=== PATIENT | female | born 2000 | race African-American/Black ===

== ENCOUNTER 2020-08-03 12:04 | Emergency (ER) | payer SELFPAY ==
[~2020-08-03] VITALS: Ht 170.2 cm; Wt 84.1 kg
[2020-08-03 12:06] VITALS: TEMP 99.5
[2020-08-03 12:32] LABS: BASO % 0.2 % (0.0-2.0); EOS # 0.2 (0.0-0.7); EOS % 1.8 % (0-4.0); GRAN # 6.4 (1.4-6.5); GRAN % 58.8 % (42.2-75.2); HEMATOCRIT 37.6 % (35.0-45.0); HEMOGLOBIN 12.7 g/dl (12.0-15.0); LYMPH # 3.7 (1.2-3.4); MEAN CELL VOLUME 88 fl (80.0-95.0); MEAN CORPUSCULAR HEMOGLOBIN 30 pg (26.0-32.0); MEAN CORPUSCULAR HGB CONC 34 g/dl (33.0-37.0); MONO # 0.5 (0.1-0.6); MONO % 4.9 % (1.7-9.3); PLATELET COUNT 307 K/mm3 (130-400); RED BLOOD COUNT 4.28 M/mm3 (4.10-5.30); REDCELL DISTRIBUTION WIDTH-CV 12.2 % (11.5-14.5)
[2020-08-03 12:36] LABS: COLLECTION METHOD CLEAN CATCH
[2020-08-03 12:43] LABS: PH 7 (5-8); SQUAMOUS EPITHELIAL 0-2 /hpf; URINE APPEARANCE Clear; URINE BACTERIA Rare /hpf; URINE BILIRUBIN Negative (NEGATIVE); URINE BLOOD Negative (NEGATIVE); URINE COLOR Amber; URINE GLUCOSE Negative (NEGATIVE); URINE KETONE Negative (NEGATIVE); URINE LEUKOCYTE ESTERASE Negative (NEGATIVE); URINE NITRATE Negative (NEGATIVE); URINE PROTEIN(semi-quant) Negative (NEGATIVE); URINE RBC 0-2 /hpf; URINE UROBILINOGEN Negative (NEGATIVE)
[2020-08-03 12:46] LABS: ALANINE AMINOTRANSFERASE 18 U/L (4-34); ALBUMIN 4.3 gm/dL (3.5-5.0); ALKALINE PHOSPHATASE 88 U/L (50-136); ANION GAP 9 mmol/L (7-16); AST,SGOT 25 U/L (15-37); BILIRUBIN,TOTAL 0.2 mg/dL (0.0-1.0); BLOOD UREA NITROGEN 10 mg/dL (7-17); CALCIUM 9.4 mg/dL (8.4-10.2); CARBON DIOXIDE 24 mmol/L (22-30); CHLORIDE 104 mmol/L (98-107); CREATININE, serum 0.79 (0.52-1.25); GLUCOSE 110 mg/dL (74-106); POTASSIUM 4.1 mmol/L (3.4-5.0); SODIUM 137 mmol/L (137-145); TOTAL PROTEIN 7.8 gm/dL (6.4-8.2)
[2020-08-03 12:48] LABS: ACETAMINOPHEN < 10 ug/mL (10-30); ALCOHOL(ethanol),MEDICAL < 10 mg/dL; SALICYLATE < 1.0 mg/dL
[2020-08-03 12:57] LABS: TRICYCLIC ANTIDEPRESS URINE NEGATIVE
[2020-08-03 18:21] VITALS: BP 123/79; PULSE 78
== END 2020-08-03 18:24 ==
LOC: COL.ER 12:04
PROVIDERS: Family Medicine
DX: S51.812A Laceration without foreign body of left forearm, initial encounter (principal); F32.9 Major depressive disorder, single episode, unspecified; Z87.891 Personal history of nicotine dependence; Z88.0 Allergy status to penicillin; X78.0XXA Intentional self-harm by sharp glass, initial encounter

== ENCOUNTER 2020-08-15 18:52 | Emergency (ER) | payer SELFPAY ==
[~2020-08-15] VITALS: Ht 170.2 cm; Wt 88.6 kg
[2020-08-15 19:06] VITALS: BP 116/88; TEMP 97.2
[2020-08-15 20:06] LABS: COLLECTION METHOD CLEAN CATCH
[2020-08-15 20:09] LABS: HEMOGLOBIN 11.3 g/dl (12.0-15.0); MEAN CELL VOLUME 88 fl (80.0-95.0); MEAN CORPUSCULAR HEMOGLOBIN 29 pg (26.0-32.0); MEAN CORPUSCULAR HGB CONC 33 g/dl (33.0-37.0); MEAN PLATELET VOLUME 8.8 fl (7.4-10.4); PLATELET COUNT 346 K/mm3 (130-400); RED BLOOD COUNT 3.84 M/mm3 (4.10-5.30); REDCELL DISTRIBUTION WIDTH-CV 12.8 % (11.5-14.5)
[2020-08-15 20:15] LABS: HEMATOCRIT 33.9 % (35.0-45.0); MUCOUS Present /lpf; SQUAMOUS EPITHELIAL 0-2 /hpf; URINE BACTERIA Rare /hpf; URINE RBC 0-2 /hpf
[2020-08-15 20:21] LABS: ALANINE AMINOTRANSFERASE 27 U/L (4-34); ALBUMIN 4.1 gm/dL (3.5-5.0); ALKALINE PHOSPHATASE 83 U/L (50-136); ANION GAP 7 mmol/L (7-16); AST,SGOT 32 U/L (15-37); BILIRUBIN,TOTAL 0.3 mg/dL (0.0-1.0); BLOOD UREA NITROGEN 13 mg/dL (7-17); CALCIUM 9.4 mg/dL (8.4-10.2); CARBON DIOXIDE 27 mmol/L (22-30); CHLORIDE 104 mmol/L (98-107); CREATININE, serum 0.91 (0.52-1.25); GLUCOSE 78 mg/dL (74-106); POTASSIUM 3.8 mmol/L (3.4-5.0); SODIUM 139 mmol/L (137-145); TOTAL PROTEIN 7.6 gm/dL (6.4-8.2)
[2020-08-15 20:22] LABS: TRICYCLIC ANTIDEPRESS URINE NEGATIVE
[2020-08-15 20:23] LABS: ACETAMINOPHEN < 10 ug/mL (10-30); ALCOHOL(ethanol),MEDICAL < 10 mg/dL; SALICYLATE < 1.0 mg/dL
[2020-08-15 20:39] LABS: PH 8 (5-8); URINE APPEARANCE Clear; URINE BILIRUBIN Negative (NEGATIVE); URINE BLOOD Negative (NEGATIVE); URINE COLOR Straw; URINE GLUCOSE Negative (NEGATIVE); URINE KETONE Negative (NEGATIVE); URINE LEUKOCYTE ESTERASE Negative (NEGATIVE); URINE NITRATE Negative (NEGATIVE); URINE PROTEIN(semi-quant) Negative (NEGATIVE); URINE UROBILINOGEN Negative (NEGATIVE)
[2020-08-15 20:58] LABS: BAND 3 % (0-10); EOSINOPHIL 4 % (0-4); NEUTROPHILS 56 % (42.0-75.2)
[2020-08-15 20:59] LABS: LYMPHOCYTE 36 % (20.0-51.0); PLATELET ESTIMATE NORMAL (NORMAL)
[2020-08-16] MEDS ORDERED: LITHIUM CA150 MG/CAP PO (12:53)
[2020-08-16] MEDS ORDERED: ATARAX50 MG PO (12:54)
[2020-08-16 14:11] VITALS: PULSE 96
== END 2020-08-16 14:11 ==
LOC: COL.ER 18:52
PROVIDERS: Emergency Medicine
DX: F32.9 Major depressive disorder, single episode, unspecified (principal); F17.200 Nicotine dependence, unspecified, uncomplicated; Z32.02 Encounter for pregnancy test, result negative; Z20.828 Contact with and (suspected) exposure to other viral communicable diseases; Z88.0 Allergy status to penicillin